=== PATIENT | female | born 1955 | race Caucasian/White ===

== ENCOUNTER 2019-08-20 08:05 | Day surgery (SDC) | payer MEDICARE ==
[~2019-08-20 08:05] MED LIST: ACETAMINOPHEN 1,000 MG/100 ML BTL IVPB ONE; CEFAZOLIN 2 Gram 2 GM/50 ML BAG IVPB ONE
[2019-08-20] MEDS ORDERED: GLYCOPYRROLATE 0.2 MG/ML ML IV ONE (08:06)
[2019-08-20] MEDS ORDERED: *PACU ONLY* KETAMINE HCL 10 MG/ML (20ML) VIAL IV ONE (08:06)
[2019-08-20] MEDS ORDERED: LIDOCAINE 2% MDV (20MG/ML) 20ML VIAL IV ONE (08:06)
[2019-08-20] MEDS ORDERED: SEVOFLURANE 250 ML INH ONE (08:06)
[2019-08-20] MEDS ORDERED: KETOROLAC 30 MG/ML VIAL IVP ONE (08:06)
[2019-08-20] MEDS ORDERED: PROPOFOL 10 MG/ML VIAL IV ONE (08:06)
[2019-08-20] MEDS ORDERED: ONDANSETRON HCL IV 4 MG/2 ML VIAL IVP ONE (08:06)
[2019-08-20] MEDS ORDERED: RINGERS SOLUTION,LACTATED 1,000 ML IV ONE (08:45)
[2019-08-20] MEDS ORDERED: EPINEPHRINE 1 MG/ML AMPUL SQ ONE (11:18)
[2019-08-20] MEDS ORDERED: BUPIVACAINE 0.5% W/EPI MPF 30 ML VIAL IU ONE (11:19)
[2019-08-20] MEDS ORDERED: BUPIVACAINE LIPOSOME 266MG/20ML VIAL SQ ONE (11:19)
[2019-08-20] MEDS ORDERED: METHYLPREDNISOLONE 40MG/VIAL IU ONE (11:21)
[2019-08-20] MEDS ORDERED: HYDROMORPHONE HCL 2 MG/ML VIAL IVP PRN (12:55)
[2019-08-20] MEDS ORDERED: HYDROCODONE/APAP 7.5/325MG TABLET PO ONE (13:23)
--- NOTE | 2019-08-21 06:04 | Operative Note ---
DATE OF SURGERY: 08/20/2019 PREOPERATIVE DIAGNOSIS: PAINFUL SHOULDER STATUS POST ARTHROSCOPIC ROTATOR CUFF REPAIR IMPINGEMENT, TENDONITIS FROM ALMOST TWO YEARS AGO. POSTOPERATIVE DIAGNOSIS: 1. GLENOHUMERAL ARTHROSIS. 2. INTACT HEALED ROTATOR CUFF. 3. LOOSE SUTURE. OPERATION: 1. DIAGNOSTIC ARTHROSCOPY. 2. ARTHROSCOPIC INTERARTICULAR DEBRIDEMENT AND REMOVAL OF LOOSE SUTURE AND CHONDROPLASTY. 3. ARTHROSCOPIC SUBACROMIAL DECOMPRESSION AND ACROMIOPLASTY. SURGEON: Otto Kuhn M.D. ANESTHESIA: General endotracheal. COMPLICATIONS: None. ESTIMATED BLOOD LOSS: Minimal. OPERATIVE FINDINGS: Loose interarticular suture from previous rotator cuff repair, partial thickness completely healed and some glenohumeral arthrosis Grade 2 in the glenohumeral head, subacromial adhesions. INDICATION: This is a 63-year-old female who is well known to myself, she is status post arthroscopic partial thickness rotator cuff repair, biceps tenotomy done about a year and a half ago. She has persistent pain, I did multiple injections, we tried therapy over the last months, she did well initially, all of her symptoms only happened, and we offered her arthroscopic surgery. At this time I felt she might have some arthritis or loose suture. I explained the risks and benefits thoroughly in detail including, but not limited to infection, nerve injury, vessel injury, persistent pain, numbness and tingling in the shoulder, re-tars of the rotator cuff, need for further procedures, the fact that she has chronic arthrosis of the shoulder, this procedure can not cure that condition, could require further procedures, and all of her questions were answered, Rehab course was outlined, and she agreed to proceed. PROCEDURE: Patient was brought in the Operating Room and placed in the beach chair position, prepped for surgery. General endotracheal anesthesia was induced and her left upper extremity and shoulder were prepped and draped in sterile fashion. The left shoulder was prepped again using ChloraPrep and draped, and a timeout was performed. Preop shoulder exam revealed full shoulder range of motion, no shoulder instability. Next, the glenohumeral joint and subacromial space were injected with 0.5% Marcaine with epi. Standard posterior arthroscopic portal was was established 2 cm inferior, 1 cm into posterolateral corner of the acromion. The anterior portal was established under direct visualization. Diagnostic arthroscopy was performed. The biceps tendon was absent as it was previously released on previous surgery. The posterior superior labrum is normal. The axial recess showed some mild debris, cartilage fragments which were debrided out. The posterior inferior labrum is normal. The glenohumeral and articular cartilage had Grade 1-2 chondromalacia which was lightly shaved and smoothed out as best as we could. The undersurface of the rotator cuff was thoroughly inspected, it was healed, the partial thickness tear was completely healed, the tissue swept nicely down into the greater tuberosity. There was some loose suture as expected, we cut and debrided that with a shaver and removed that in its entirety interarticularly and in the subacromial space removing the knot. The remainder of the cuff was healed and intact. Superior glenohumeral ligaments were normal. The subscapularis tendon appears normal. Next, the anterior and posterior subacromial portals were established, the tissue blade was then inserted into the anterior subacromial portal, subacromial bursectomy was performed outlining the anterior lateral edge of the acromion. Next using a shaver and lightly swept bone and smoothed off the subacromial surface working from lateral, medial, anterior, posterior using a rasp to further smooth it. We resected the remainder of the burs around the subdeltoid gutter around the periphery and entire shoulder. We thoroughly inspected the bursal surface cuff and that was intact. This completed our procedures. The scope and curtain was removed. The glenohumeral joint was bolused with 0.5% Marcaine with epi and 80 mg of Depo- Medrol and Exparel was infiltrated throughout. A sterile dressing was applied. The patient tolerated the procedure well. No intraoperative complications. All sponge, needle and blade counts are correct. Sent to the Recovery Room stable. Neurovascularly intact. Patient discharged as an outpatient. Follow-up in two weeks. JOB NUMBER: [id number] MTDD
== END 2019-08-20 13:25 | disposition home or self-care (01) ==
LOC: SUR 08:05
PROVIDERS: ATTEND Orthopaedic Surgery
DX: M19.012 Primary osteoarthritis, left shoulder (principal)
CPT/HCPCS: J0171; J1030; J1885; J2405; J7120